=== PATIENT | male | born 1990 | race African-American/Black ===

== ENCOUNTER 2024-06-30 17:31 | Observation (INO) ==
[2024-06-30 20:07] LABS: ABS Basophils 0.1 10^3/uL (0.0-0.1); ABS Eosinophils 0.2 10^3/uL (0.0-0.5); ABS Lymphocytes 1.9 10^3/uL (1.0-4.8); ABS Monocytes 0.7 10^3/uL (0.0-1.1); ABS Neutrophils 7.7 10^3/uL (1.5-7.6); ABS Nucleated RBC 0.02 10^3/ul; Eosinophil % 1.5 %; Hematocrit 43.9 % (38-53); Hemoglobin 14.8 g/dL (13.2-16.3); Lymphocyte % 17.7 %; Mean Corpuscular Hemoglobin 28.1 pg (27-33); Mean Corpuscular Hgb Conc 33.7 g/dL (31-36); Mean Corpuscular Volume 83.4 fL (80-97); Mean Platelet Volume 8.5 fL (7.5-11.2); Nucleated Red Blood Cells % 0.2 %/100WBC (0.0-0.8); Platelet Count 282 10^3/uL (150-450); Red Blood Count 5.27 10^6/uL (4.06-5.63); White Blood Count 10.6 10^3/uL (3.6-10.2)
[2024-06-30] MEDS: Morphine 4 MG/ML VIAL (1 ml) IV ONE (20:12)
[2024-06-30 20:35] LABS: ALT 27 U/L (7-52); AST 18 U/L (13-39); Acetaminophen < 15 mcg/mL; Albumin 4.8 g/dL (3.5-5.7); Albumin/Globulin Ratio 1.8 (1-3); Alcohol, S < 13 mg/dL (<13); Alkaline Phosphatase 81 U/L (35-149); Anion Gap 9 mmol/L (2-16); Blood Urea Nitrogen 12 mg/dL (6-24); CO2 Carbon Dioxide 25 mmol/L (22-32); Calcium 9.8 mg/dL (8.6-10.3); Chloride 105 mmol/L (101-111); Creatinine, Serum 0.85 mg/dL (0.67-1.17); Globulin 2.6 g/dL (2-4); Glucose 93 mg/dL (70-100); Potassium 4.3 mmol/L (3.5-5.0); Salicylate < 2.50 mg/dL (<30); Sodium 139 mmol/L (135-145); Total Bilirubin 0.6 mg/dL (0.2-1.0); Total Protein 7.4 g/dL (6.4-8.9); eGFR CKD-EPI 118.4 (>60)
[2024-06-30] MEDS: Ondansetron 4 mg VIAL 2 MG/ML 2 ml VIAL IV ONE (20:41)
[2024-06-30 20:46] LABS: TSH Ultra Thyroid Stim Horm 1.74 mcIU/mL (0.34-5.60)
[2024-06-30] MEDS: Lactated Ringers 1000 ml BAG 1,000 ML IV ONE (22:08)
[2024-06-30] MEDS: Acetaminophen IV 1 GM/100ML 1,000 MG/100 ML BAG IV ONE (23:04)
[2024-07-01] MEDS: Morphine 2 MG/ML SYRINGE IV PRN (00:49)
[2024-07-01 05:23] LABS: Hematocrit 41.1 % (38-53); Hemoglobin 13.9 g/dL (13.2-16.3); Mean Corpuscular Hemoglobin 28.3 pg (27-33); Mean Corpuscular Hgb Conc 33.8 g/dL (31-36); Mean Corpuscular Volume 83.6 fL (80-97); Mean Platelet Volume 8.7 fL (7.5-11.2); Platelet Count 250 10^3/uL (150-450); Red Blood Count 4.91 10^6/uL (4.06-5.63); Red Cell Distribution Width 14.6 % (12-17); White Blood Count 9.4 10^3/uL (3.6-10.2)
[2024-07-01 05:42] LABS: Albumin 4.2 g/dL (3.5-5.7); Albumin/Globulin Ratio 1.8 (1-3); Calcium 9.1 mg/dL (8.6-10.3); Creatinine, Serum 0.9 mg/dL (0.67-1.17); Globulin 2.4 g/dL (2-4); Phosphorus 4.3 mg/dL (2.5-5.0); Potassium 4.2 mmol/L (3.5-5.0); Total Protein 6.6 g/dL (6.4-8.9); eGFR CKD-EPI 116.4 (>60)
[2024-07-01 06:32] LABS: ABS Basophils 0.2 10^3/uL (0.0-0.1); ABS Eosinophils 0.4 10^3/uL (0.0-0.5); ABS Lymphocytes 2.3 10^3/uL (1.0-4.8); ABS Monocytes 0.8 10^3/uL (0.0-1.1); ABS Neutrophils 5.6 10^3/uL (1.5-7.6); ABS Nucleated RBC 0.01 10^3/ul; Eosinophil % 4.5 %; Nucleated Red Blood Cells % 0.1 %/100WBC (0.0-0.8); RBC Morphology Normal (Normal)
[2024-07-01 06:42] LABS: HIV 4th Generation Nonreactive (Nonreactive)
[2024-07-01] MEDS ORDERED: Acetaminophen IV 1 GM/100ML 1,000 MG/100 ML BAG IV PRN (08:06)
[2024-07-01] MEDS: Famotidine IV 10 MG/ML 2 ml VIAL (20 mg) IV SLOW PU SCH (09:09)
[2024-07-01] MEDS: LORazepam 2 mg VIAL 1 ml IM PRN ×2 (12:00→13:24)
[2024-07-01 12:34] VITALS: BP 138/96
[2024-07-01] MEDS ORDERED: LORazepam 2 mg VIAL 1 ml IM PRN (12:54)
[2024-07-01] MEDS ORDERED: Lorazepam PYXIS KEY PRN ×2 (12:54→13:04)
[2024-07-01] MEDS: Ziprasidone IM 20 mg VIAL 1 ml VIAL ONE (13:45)
[2024-07-01] MEDS: LORazepam 2 mg VIAL 1 ml ONE (13:45)
[2024-07-01] MEDS ORDERED: CMC:Dorzolamide/Timolol OPTH (NF) 10 ML BOT LEFT EYE SCH (21:00)
[2024-07-01] MEDS ORDERED: Ondansetron ODT 4 mg TAB 4 MG TAB PO SCH (21:00)
[2024-07-01] MEDS ORDERED: Senna TAB 8.6 mg TAB PO SCH (21:00)
== END 2024-07-01 13:45 ==
LOC: ED 17:31 → EDHOLD 22:18 → INTOOBSV 22:18 → ICU 22:30
PROVIDERS: ADMIT Internal Medicine Critical Care Medicine; ATTEND Internal Medicine Critical Care Medicine